=== PATIENT | female | born 1950 | race Caucasian/White ===

== ENCOUNTER → 2017-12-27 | Outpatient (CLI) | payer OTHER ==
[~2017-12-27] MED LIST: ALLOPURINOL 30300 M1 PO; ASPIRIN EC81 M1 PO; AUGMENTIN 875-1 EACH PO; CARVEDILOL25 MG PO; CLONIDINE0.1 PO; DILTIAZEM 24HR240 MG PO; DIPHENOXYLATE/A1 TA1 PO; DUONEB 2.5-0.5 M3 ML INH; EVISTA PO; FUROSEMIDE 20 M20 M1 PO; LIPITOR20 MG PO; NICOTINE TRANSD21 M1 TD; PACERONE 200 M200 M1; PERCOCET 5-3251 EACH PO; PLAVIX 75 MG TA75 M1; PRILOSEC 20 MG20 MG PO; PROZAC 20 MG20 MG PO; ZANAFLEX4 M1 PO
== END ==
LOC: CAT 13:14
DX: I72.3 Aneurysm of iliac artery (principal); I71.4 Abdominal aortic aneurysm, without rupture; N18.9 Chronic kidney disease, unspecified; M51.36 Other intervertebral disc degeneration, lumbar region

== ENCOUNTER → 2019-08-29 | Outpatient (CLI) | payer OTHER ==
[~2019-08-29] VITALS: Ht 167.6 cm; Wt 63.5 kg
[~2019-08-29] MED LIST changes: +CLARITIN10 MG PO; +COUMADIN 5 MG TA5 M1 PO; +GATTEX5 MG SUBQ; +HUMIRA PEN PSO1 EACH SUBQ; +PHENERGAN 25 MG25 M1 PO; +PROAIR HFA8.5 GM INH
[2019-08-29 09:00] LABS: CREATININE 1.9 mg/dL (0.6-1.0); POTASSIUM 4.7 mmol/L (3.5-5.1)
[2019-08-29 09:04] LABS: PROTIME 10.3 Seconds (9.3-11.4)
[2019-08-29 09:06] LABS: ALBUMIN 3.4 g/dL (3.4-5.0); TOTAL BILIRUBIN 0.3 mg/dL (<0.1-1.0); TOTAL PROTEIN 7.6 g/dL (6.4-8.2)
== END | disposition home or self-care (01) ==
LOC: CATH 07:51
PROVIDERS: Nuclear Medicine Nuclear Cardiology
DX: I65.23 Occlusion and stenosis of bilateral carotid arteries (principal); I70.1 Atherosclerosis of renal artery; K55.1 Chronic vascular disorders of intestine; N28.9 Disorder of kidney and ureter, unspecified; I72.0 Aneurysm of carotid artery; I11.0 Hypertensive heart disease with heart failure; I50.9 Heart failure, unspecified; E78.5 Hyperlipidemia, unspecified; I48.91 Unspecified atrial fibrillation; J44.9 Chronic obstructive pulmonary disease, unspecified; K21.9 Gastro-esophageal reflux disease without esophagitis; F17.210 Nicotine dependence, cigarettes, uncomplicated; Z98.890 Other specified postprocedural states; Z79.899 Other long term (current) drug therapy; Z90.5 Acquired absence of kidney; Z88.8 Allergy status to other drugs, medicaments and biological substances; Z90.49 Acquired absence of other specified parts of digestive tract; Z79.01 Long term (current) use of anticoagulants; Z90.710 Acquired absence of both cervix and uterus; Z98.0 Intestinal bypass and anastomosis status

== ENCOUNTER → 2019-10-29 | Outpatient (CLI) | payer OTHER | LOC: CAT 13:24 | DX: J43.9 Emphysema, unspecified (principal); R91.8 Other nonspecific abnormal finding of lung field; R91.1 Solitary pulmonary nodule; J98.4 Other disorders of lung ==

== ENCOUNTER → 2019-11-20 | Outpatient (CLI) | payer OTHER | LOC: SJCVCIMAG 10:04 | DX: I65.23 Occlusion and stenosis of bilateral carotid arteries (principal); I70.1 Atherosclerosis of renal artery; I25.10 Atherosclerotic heart disease of native coronary artery without angina pectoris; I71.4 Abdominal aortic aneurysm, without rupture; I48.91 Unspecified atrial fibrillation; J44.9 Chronic obstructive pulmonary disease, unspecified; E78.00 Pure hypercholesterolemia, unspecified; K55.1 Chronic vascular disorders of intestine; I10 Essential (primary) hypertension; F17.210 Nicotine dependence, cigarettes, uncomplicated; Z79.01 Long term (current) use of anticoagulants; Z79.899 Other long term (current) drug therapy; Z82.49 Family history of ischemic heart disease and other diseases of the circulatory system; Z98.890 Other specified postprocedural states ==

== ENCOUNTER → 2020-04-07 | Outpatient (CLI) | payer OTHER | LOC: SJCVCIMAG 07:51 | PROVIDERS: ATTEND Internal Medicine Cardiovascular Disease | DX: I65.23 Occlusion and stenosis of bilateral carotid arteries (principal); I71.4 Abdominal aortic aneurysm, without rupture; I77.4 Celiac artery compression syndrome; I70.1 Atherosclerosis of renal artery; I25.10 Atherosclerotic heart disease of native coronary artery without angina pectoris; J44.9 Chronic obstructive pulmonary disease, unspecified; I48.0 Paroxysmal atrial fibrillation; I10 Essential (primary) hypertension; E78.00 Pure hypercholesterolemia, unspecified; F17.210 Nicotine dependence, cigarettes, uncomplicated; K50.919 Crohn's disease, unspecified, with unspecified complications; Z82.49 Family history of ischemic heart disease and other diseases of the circulatory system; Z95.828 Presence of other vascular implants and grafts; Z79.899 Other long term (current) drug therapy ==

== ENCOUNTER 2020-04-17 14:34 | Observation (INO) | payer OTHER ==
[~2020-04-17] VITALS: Ht 167.6 cm; Wt 63.5 kg
[2020-04-17 08:42] VITALS: BP 122/55
[2020-04-17 08:50] LABS: HEMATOCRIT 40.7 % (37.0-47.0); HEMOGLOBIN 13.1 gm/dL (12.0-15.0); MCH 31.6 pg (26.0-34.0); MCHC 32.3 g/dL (28.0-37.0); MCV 97.8 fL (80.0-100.0); RBC 4.16 mil/uL (4.20-5.00); RDW 17.2 % (10.5-14.5); WBC 10.1 thou/uL (4.0-11.0)
[2020-04-17 08:56] LABS: CALCIUM 8.8 mg/dL (8.5-10.1); CREATININE 2.6 mg/dL (0.6-1.0); POTASSIUM 5.1 mmol/L (3.5-5.1)
[2020-04-17 09:14] LABS: PROTIME 9.7 Seconds (9.3-11.4)
--- NOTE | 2020-04-17 10:59 | EKG ---
[facility] [place] [address] ELECTROCARDIOGRAM REPORT Name: CRISTO JONES Room #: [facility]#: [id number] Admission: Attend Phys: Darshan Wilson MD Discharge: Date of : 48 Report #: [id number] THIS REPORT FOR: cc: TONE - No family physician/PCP FAM - No family physician/PCP Gurvinder Guevara MD ~ THIS REPORT FOR: //name// [facility] Test Date: 2020-04-17 Test Time: 10:19:09 Pat Name: CRISTO JONES Department: Room: Gender: F Manager Msw: [facility] : 1950 Requested By: Madison Shanks Order Number: [id number] MD: Gurvinder Guevara Measurements Intervals [place] Rate: 68 P: 53 MI: 176 QRS: -58 QRSD: 95 T: 67 QT: 418 QTc: 445 Interpretive Statements Sinus rhythm Left anterior fascicular block Abnormal R-wave progression, late transition Compared to ECG 12/25/2012 08:17:34 Left anterior fascicular block now present Sinus bradycardia no longer present T-wave abnormality no longer present Possible ischemia no longer present Electronically Signed On 04-17-2020 10:59:41 CDT by Gurvinder Guevara [email or web address] <ELECTRONICALLY SIGNED> By: Gurvinder Guevaar MD 04/17/20 1059 1019 1019 Gurvinder Guevara MD /EPI
[~2020-04-17 14:34] MED LIST changes: +BREO ELLIPTA 11 EACH INH; +CARVEDILOL12.5 MG PO; +COMBIVENT INH; +LORCET 5-325 M1 EACH PO
--- NOTE | 2020-04-17 14:42 | NUR ---
PT ARRIVED FROM [facility] AT APPROX 1345. PT TO HAVE PROCEDURE TODAY, BUT NOTED THAT KIDNEY LABS ABNORMAL, PT ADMITTED. PT ALERT AND ORIENTED. VSS. C/O CHRONIC BACK PAIN, WILL TREAT NEEDED. PT UP SBA, TOLERATING WELL. O2 SATS WNL ON ROOM AIR. PT TO HAVE PROCEDURES TOMORROW. ADMISSION COMLETE, TELE STRIP PRINTED. PT RESTING IN BED COMFORTABLY WITH NO NEEDS/CONCERNS. WILL CONTINUE TO MONITOR.
[2020-04-17 19:58] VITALS: BP 100/58
[2020-04-18] VITALS (12 sets, daily range): BP systolic 103–174; BP diastolic 42–75
--- NOTE | 2020-04-18 03:51 | NUR ---
ASSESSMENTS CHARTED, MEDS GIVEN CHARTED. PATIENT SLEEPING AT START OF SHIFT, GETTING MAINTENANCE FLUIDS DURING SHIFT. ALERT AND ORIENTED, AFIB/ SINUS RHYTHM ON TELEMETRY. ON ROOM AIR, LUNGS CLEAR. PATIENT HAS BEEN NPO SINCE MIDNIGHT FOR CARDIAC CATH PROCEDURE IN THE MORNING. UP AT THOR IN ROOM, C/O CHRONIC PAIN TYLENOL GIVEN. FALL PRECAUTIONS IN PLACE DURING SHIFT.
[2020-04-18 06:05] LABS: CALCIUM 8.6 mg/dL (8.5-10.1); POTASSIUM 4.6 mmol/L (3.5-5.1); TOTAL BILIRUBIN 0.3 mg/dL (0.2-1.0); TOTAL PROTEIN 6.3 g/dL (6.4-8.2)
[2020-04-18] MEDS ORDERED: PLAVIX 75 MG TA75 M1 PO (09:56)
--- NOTE | 2020-04-18 10:25 | NUR ---
ASSUMED CARE OF PT AT SHIFT CHANGE, A&0X4, NORMALLY AMB WITHOUT ANY ASSISTIVE DEVICE, NPO FOR PROCEDURE. LEFT FOR CARDIAC CATH A T 0739, RETURNED AROUND 1015 WITH INSTRUCTIONS, REITERATED THROUGHOUT A.M., TO KEEP RLE STRAIGHT AND NOT TO LIFT HER HEAD. NEEDED TO USE BEDPAN IMMEDIATELY. LOG ROLLED W/SUCCESS. WILL CONTINUE TO MONITOR. HOOKED UP IVF C/O BACK PAIN FROM LYING ON CART FOR PROCEDURE, WILL HELP HER MAKE SMALL POSITION CHANGES TO HELP ALLEVIATE BACK PAIN/STIFFNESS AND START FOOD IF ORDERED. SEE SEPARATE INTERVENTIONS FOR ASSESSMENTS
--- NOTE | 2020-04-18 10:56 | NUR ---
ZOFRAN ADMINISTRATION: ADM W/ORDER YET IMMEDIATELY SHE JUST RETURNED FROM [facility], NEEDED TO BE IMMOBILE WITH LOWER EXT AND HEAD MUSCLES TO PREVENT BLEEDING AND SHE WAS VERY NAUSEAS. REPORT OF HTN PRIOR TO ARRIVAL BACK TO 2N AND MORPHINE GIVEN ALONG WITH OTHER MEDS. REC ORDER FROM CARDIOLOGY BUT CANNOT SCAN YET UNTIL IT SHOWS UP ON EMAR. GIVEN AT 1047.
== END 2020-04-18 16:00 | disposition home or self-care (01) ==
LOC: CATH 14:34 → 2N 14:35 → CATH 14:51 → 2N 04-18 16:00
PROVIDERS: Nurse Practitioner Adult Health; ADMIT Nuclear Medicine Nuclear Cardiology; ATTEND Nuclear Medicine Nuclear Cardiology
DX: I70.213 Atherosclerosis of native arteries of extremities with intermittent claudication, bilateral legs (principal); E78.5 Hyperlipidemia, unspecified; I13.0 Hypertensive heart and chronic kidney disease with heart failure and stage 1 through stage 4 chronic kidney disease, or unspecified chronic kidney disease; E11.22 Type 2 diabetes mellitus with diabetic chronic kidney disease; N18.9 Chronic kidney disease, unspecified; I50.30 Unspecified diastolic (congestive) heart failure; D68.59 Other primary thrombophilia; J44.9 Chronic obstructive pulmonary disease, unspecified; Z71.6 Tobacco abuse counseling; Z72.0 Tobacco use

== ENCOUNTER 2020-05-30 07:31 | Inpatient (IN) | payer OTHER ==
[2020-05-26 13:29] LABS: HEMATOCRIT 39.2 % (37.0-47.0); HEMOGLOBIN 12.6 gm/dL (12.0-15.0); MCH 31.3 pg (26.0-34.0); MCHC 32.2 g/dL (28.0-37.0); MCV 97.1 fL (80.0-100.0); RBC 4.03 mil/uL (4.20-5.00); RDW 17.9 % (10.5-14.5); WBC 9.7 thou/uL (4.0-11.0)
[2020-05-26 13:31] LABS: URINE BILIRUBIN NEGATIVE (Negative); URINE BLOOD NEGATIVE (Negative); URINE CLARITY CLEAR; URINE COLOR YELLOW; URINE GLUCOSE-RANDOM* NEGATIVE (Negative); URINE KETONES TRACE (Negative); URINE LEUKOCYTES-REFLEX TRACE (Negative); URINE NITRITE-REFLEX NEGATIVE (Negative); URINE PROTEIN (DIPSTICK) 2+ (Negative); URINE SPECIFIC GRAVITY 1.025 (1.005-1.035); URINE UROBILINOGEN 0.2 E.U./dl (0.2-1.0)
[2020-05-26 13:43] LABS: ALBUMIN 3.4 g/dL (3.4-5.0); CALCIUM 8.6 mg/dL (8.5-10.1); CREATININE 2.2 mg/dL (0.6-1.0); POTASSIUM 5.1 mmol/L (3.5-5.1); TOTAL BILIRUBIN 0.3 mg/dL (0.2-1.0); TOTAL PROTEIN 7.2 g/dL (6.4-8.2)
[2020-05-26 13:52] LABS: SQUAMOUS 0-3 Few /LPF (0-3)
[2020-05-26 13:53] LABS: BACTERIA-REFLEX 1-9 Few /HPF (None Seen); CASTS None Seen /LPF (None Seen); CRYSTALS None Seen /LPF (None Seen); URINE RBC None Seen /HPF (0-2)
[2020-05-26 14:08] LABS: APTT 32.4 Seconds (24.5-32.8); INR 1.1; PROTIME 10.8 Seconds (9.3-11.4)
--- NOTE | 2020-05-27 16:04 | EKG ---
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: EDWARD : 1950 Requested By: Syed Dobbins Order Number: [id number] : Gurvinder Guevara Measurements Intervals [place] Rate: 62 P: 29 NE: 163 QRS: -53 QRSD: 112 T: 77 QT: 419 QTc: 426 Interpretive Statements Sinus rhythm Atrial premature complex Left anterior fascicular block Borderline T abnormalities, lateral leads Compared to ECG 04/17/2020 10:19:09 Atrial premature complex(es) now present T-wave abnormality now present Electronically Signed On 05-27-2020 16:04:35 CDT by Gurvinder Guevara [email or web address] <ELECTRONICALLY SIGNED> By: Gurvinder Guevara MD 05/27/20 1604 1323 1323 Gurvinder Guevara MD /EPI
[~2020-05-30] VITALS: Ht 167.6 cm; Wt 64.0 kg
[~2020-05-30 07:31] MED LIST changes: +LOMOTIL TABLET1 EACH PO; +MACROBID 100 M100 M2 PO; +OMEPRAZOLE 20 M20 M1 PO; +PLAVIX 75 MG TA75 M1 PO; +PROZAC20 M1 PO
[2020-06-05] MEDS ORDERED: PLAVIX 75 MG TA75 MG PO (14:59)
[2020-06-05] MEDS ORDERED: WARFARIN SODIUM5 MG PO (15:00)
[2020-06-09 13:23] LABS: URINE BILIRUBIN NEGATIVE (Negative); URINE BLOOD NEGATIVE (Negative); URINE CLARITY SL CLOUDY; URINE COLOR YELLOW; URINE GLUCOSE-RANDOM* NEGATIVE (Negative); URINE KETONES NEGATIVE (Negative); URINE NITRITE-REFLEX NEGATIVE (Negative); URINE PROTEIN (DIPSTICK) 2+ (Negative); URINE SPECIFIC GRAVITY 1.025 (1.005-1.035); URINE UROBILINOGEN 0.2 E.U./dl (0.2-1.0)
[2020-06-09 13:24] LABS: URINE LEUKOCYTES-REFLEX 1+ (Negative)
[2020-06-09 13:34] LABS: CASTS None Seen /LPF (None Seen); SQUAMOUS >10 Many /LPF (0-3); URINE RBC 0-2 Rare /HPF (0-2)
[2020-06-09 13:35] LABS: BACTERIA-REFLEX 1-9 Few /HPF (None Seen); CRYSTALS None Seen /LPF (None Seen)
[2020-06-13] VITALS (8 sets, daily range): BP systolic 92–127; BP diastolic 29–57
[2020-06-13 07:21] LABS: PROTIME 9.9 Seconds (9.3-11.4)
[2020-06-13 12:44] LABS: HEMATOCRIT 28.8 % (37.0-47.0); HEMOGLOBIN 9.5 gm/dL (12.0-15.0); MCH 32.2 pg (26.0-34.0); MCHC 33.1 g/dL (28.0-37.0); MCV 97.1 fL (80.0-100.0); RBC 2.96 mil/uL (4.20-5.00)
--- NOTE | 2020-06-13 13:46 | NUR ---
PATIENT ARRIVED TO ICU FROM PACU AT 1335, ALERT AND ORIENTED. HYPOTENSIVE AND ON LEVOPHED GTT FOR BP SUPPORT. A-LINE ON BOTH RIGHT AND LEFT RADIAL-LEFT NON FUNCTIONAL AND WILL DC ONCE PATIENT IS SETTLED IN. SCDs ON BLE. FAMILY MEMBER IN TO SEE PATIENT BRIEFLY AND UPDATED THEN LEFT. BELONGINGS WITH PATIENT.
--- NOTE | 2020-06-13 14:26 | O ---
[facility] [place] [address] OPERATIVE REPORT Name: CRISTO JONES Room #: 250-P ADM IN M.R.#: [id number] Admission: 06/13/20 Attend Phys: Syed Dobbins MD Discharge: Date of : 48 Report #: [id number] THIS REPORT FOR: cc: MARICARMEN DIETZ - Family physician unknown Syed Dobbins MD ~ CC: TONE unknown MARICARMEN Dobbins DATE OF SERVICE: 06/13/2020 PREOPERATIVE DIAGNOSIS: Right carotid artery stenosis. POSTOPERATIVE DIAGNOSIS: Right carotid artery stenosis. OPERATION: Right carotid endarterectomy with patch closure. SURGEON: Syed Dobbins MD ASSOCIATE PROFESSOR OF EDUCATION: ABELINO Carroll. ANESTHESIA: General. INDICATIONS: The patient is a 69-year-old seen for Dr. Wilson. The patient has a 90 plus percent complex right carotid bifurcation lesion extending into the internal carotid. The left side had trivial disease. FINDINGS AND TECHNIQUE: After general anesthesia was established, an oblique incision was made in the right neck. Common facial vein was divided. Common internal and external carotid arteries were identified and controlled, 10,000 units of heparin were given. Continuous electroencephalographic monitoring was performed during the operation when the carotid vessels were occluded, no EEG changes were noted. Carotid arteriotomy was made. The endarterectomy was performed without creating a distal flap. Neointima was inspected and all loose debris was removed. Tacking sutures were placed at the transition zone. When the endarterectomy was deemed to be satisfactory, the arteriotomy was closed with running Prolene and a thin walled pericardial patch. Prior to finishing the closure, the carotid vessels were backbled and the artery was flushed with heparinized saline. Flow was established first through the external, then the internal carotid artery. [facility] [address] [place] [address] OPERATIVE REPORT Name: CRISTO JONES Room #: 250-P ADM IN M.R.#: [id number] Admission: 06/13/20 Attend Phys: Syed Dobbins MD Discharge: Date of : 48 Report #: [id number] Protamine was given to reverse the heparin. When hemostasis was satisfactory, wound was irrigated with antibiotic solution and then a Laughlin drain was brought out through the bottom pole of the incision and the wound was closed in layers. The patient was taken to the recovery area in good condition where her neurologic progress was monitored. All counts were reported as correct. <ELECTRONICALLY SIGNED> By: Syed Dobbins MD 06/13/20 1426 1114 1137 Syed Dobbins MD /nt
--- NOTE | 2020-06-13 14:36 | NUR ---
ASSESSMENT: CM REVIEWED CHART AND ATTEMPTED TO CONTACT PATIENT BUT NO ANSWER. CM ATTEMPTED TO REACH OUT TO PATIENTS BUT VM WAS LEFT. PT WAS ADMITTED DUE TO RIGHT CARTOID ENDARTERECTOMY. PER RECORDS IT APPEARS PATIENT IS FROM HOME. PT/OT HAS BEEN ORDERED BUT EVALS ARE PENDING. CM WILL CONTINUE TO FOLLOW AND ATTEMPT TO REACH PT/ TO ASSIST WITH ANY NEEDS.
[2020-06-13 17:04] LABS: CALCIUM 7.3 mg/dL (8.5-10.1); CREATININE 1.8 mg/dL (0.6-1.0)
--- NOTE | 2020-06-13 21:17 | NUR ---
DISCUSSED PATIENT STATUS WHEN DR. WHITE ROUNDED APPROXIMATELY 2014. NOTIFIED THAT LEVO WAS DISCONTINUED BUT PHENYLEPHERINE WAS ON THE MAR, WHITE WANTS LEVO TO HELP KEEP HR UP, TO WEAN TOLERATED PER ORDER. MAY SHUT OFF FLUIDS AFTER BAG HAS INFUSED IF PATIENT IS EATING AND DRINKING. NOTIFIED THAT URINE OUTPUT WAS APPROX 25CC/HR, ACCEPTABLE FOR THIS PATIENT AT THIS TIME PER WHITE
[2020-06-14] VITALS (8 sets, daily range): BP systolic 91–120; BP diastolic 35–56
[2020-06-14 05:39] LABS: HEMATOCRIT 28.8 % (37.0-47.0); HEMOGLOBIN 9.4 gm/dL (12.0-15.0); MCH 31.9 pg (26.0-34.0); MCHC 32.6 g/dL (28.0-37.0); MCV 97.8 fL (80.0-100.0); RBC 2.94 mil/uL (4.20-5.00); RDW 17.3 % (10.5-14.5); WBC 13.3 thou/uL (4.0-11.0)
[2020-06-14 05:56] LABS: CALCIUM 7.8 mg/dL (8.5-10.1); POTASSIUM 5.5 mmol/L (3.5-5.1)
--- NOTE | 2020-06-14 12:26 | NUR ---
1215- UP TO CHAIR. DR. HILLMAN CHANGED NECK DRESSING NURSE DISCONTINUED GARCIA WITHOUT DIFFICULTY. EDUCATION PROVIDED IN REGARDS TO PATIENT NEED TO VOID PRIOR TO DISCHARGE. ARTERIAL LINE DISCONTINUED WITHOUT DIFFICULTY. EDUCATION PROVIDED IN REGARDS TO SITE CARE AND MONITORING. SHE EXPRESSED SHE UNDERSTOOD. NURSE TALKED WITH DR. HILLMAN IN REGARDS TO PATIENT PAIN REGIMEN, PRN MEDICATION OBTAINED. WILL PROVIDE FOR HER PAIN.
--- NOTE | 2020-06-14 14:18 | NUR ---
SPOKE WITH PT TODAY REGARDING OT EVAL. SHE HAD JUST RETURNED TO BED FROM CHAIR WITH RN. DOES NOT USE GAIT AID AT BASELINE AND DIDN'T DURING FUNCTIONAL TRANSFERS IN HOSPITAL. PT PLANNING TO DISCHARGE TODAY. PT LIVES WITH SPOUSE WHO IS AVAILABLE TO ASSIST PT NEEDED. HER BATHROOM AND BEDROOM ARE ON FIRST FLOOR. BATHROOM HAS GRAB BARS AND A SHOWER CHAIR. SHE OWNS A CANE, WALKER, AND WHEELCHAIR. OT SIGNING OFF. PLEASE LET OT DEPT KNOW IF PT NEEDS CHANGE.
--- NOTE | 2020-06-17 18:06 | PATH ---
[facility] [address] [place] [address] PATHOLOGY RPT PROCEDURE Name: JER JONESNITIN Alves Room #: 250-P DIS IN M.R.#: [id number] Admission: 06/13/20 Date of : 48 Discharge: 06/14/20 Report #: [id number] Path Case #: [id number] [facility] Accession Number: [id number] . 01 Material submitted: . carotid body - RIGHT CAROTID PLAQUE. Modifiers: right . 01 Clinical history: . RIGHT CAROTID STENOSIS . 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 - Fragments of calcific atherosclerotic plaque material. ([facility]; 06/17/2020) QMS 06/17/2020 1336 Local . 02 Electronically signed: . Krys Bland MD, Pathologist NPI- [id number] . 01 Gross description: . Received in formalin labeled "Cristo Jones, right carotid plaque" is a tubular portion of morales-white rubbery tissue measuring 4.8 cm in length and 1.4 cm in diameter. The specimen is sectioned to reveal extensive morales-white calcifications comprising approximately 80% of the specimen. Chemist Biological sections are submitted in cassette A1 following decalcification. ([facility]; 06/13/2020) [facility] 06/13/2020 [facility] Local . 02 Pathologist provided ICD-10: I77.1 . 02 CPT . 135013, 539497 Specimen Comment: A courtesy copy of this report has been sent to [phone] Specimen Comment: Report sent to Performed at: [address], [place] [id number] MD Ferny Lo MD Phone: [phone] Performed at: [address] [id number] MD Krys Bland MD Phone: [phone]
== END 2020-06-14 15:00 | disposition home or self-care (01) | DRG 39 ==
LOC: PRE 07:31 → TBA 06-13 06:03 → PRE 06-13 12:28 → ICU 06-13 13:45 → PRE 06-13 14:59 → ICU 06-14 15:00
PROVIDERS: Anesthesiology; Physician Assistant; ADMIT Surgery Vascular Surgery; ATTEND Surgery Vascular Surgery
DX: I65.21 Occlusion and stenosis of right carotid artery (principal)
CPT/HCPCS: 10078; 48888; 50010; 50101; 50386; 50417; 50455; 51301; 52279; 52287; 54118; 56524; 56526; 56528; 56534; 57254; 62110; 62900; 65020; 65040; 65130; 70005

== ENCOUNTER → 2020-06-09 | Outpatient (CLI) | payer OTHER ==
[~2020-06-09] MED LIST changes: +PLAVIX 75 MG TA75 MG PO; +WARFARIN SODIUM5 MG PO
== END ==
LOC: LAB 14:50
PROVIDERS: ATTEND Surgery Vascular Surgery
DX: Z01.812 Encounter for preprocedural laboratory examination (principal); Z20.828 Contact with and (suspected) exposure to other viral communicable diseases

== ENCOUNTER → 2020-07-16 | Outpatient (CLI) | payer OTHER | LOC: SJCVCIMAG 08:39 | PROVIDERS: ATTEND Internal Medicine Cardiovascular Disease | DX: I65.22 Occlusion and stenosis of left carotid artery (principal); I71.4 Abdominal aortic aneurysm, without rupture; N28.1 Cyst of kidney, acquired; I77.9 Disorder of arteries and arterioles, unspecified; I10 Essential (primary) hypertension; I70.1 Atherosclerosis of renal artery; I25.10 Atherosclerotic heart disease of native coronary artery without angina pectoris; I48.91 Unspecified atrial fibrillation; J44.9 Chronic obstructive pulmonary disease, unspecified; K55.1 Chronic vascular disorders of intestine; K50.919 Crohn's disease, unspecified, with unspecified complications; E78.00 Pure hypercholesterolemia, unspecified; F17.210 Nicotine dependence, cigarettes, uncomplicated; Z79.899 Other long term (current) drug therapy ==

== ENCOUNTER → 2020-11-03 | Outpatient (CLI) | payer OTHER | LOC: SJCVC 11:41 | PROVIDERS: ATTEND Internal Medicine Cardiovascular Disease | DX: R94.31 Abnormal electrocardiogram [ECG] [EKG] (principal); I11.9 Hypertensive heart disease without heart failure; I49.49 Other premature depolarization; I25.10 Atherosclerotic heart disease of native coronary artery without angina pectoris; I48.91 Unspecified atrial fibrillation; E78.00 Pure hypercholesterolemia, unspecified; I71.4 Abdominal aortic aneurysm, without rupture; K55.1 Chronic vascular disorders of intestine; E11.9 Type 2 diabetes mellitus without complications; I70.1 Atherosclerosis of renal artery; I77.9 Disorder of arteries and arterioles, unspecified; D68.59 Other primary thrombophilia; J44.9 Chronic obstructive pulmonary disease, unspecified; F17.210 Nicotine dependence, cigarettes, uncomplicated; Z98.890 Other specified postprocedural states; Z88.8 Allergy status to other drugs, medicaments and biological substances; Z79.4 Long term (current) use of insulin; Z79.01 Long term (current) use of anticoagulants; Z79.899 Other long term (current) drug therapy; Z82.49 Family history of ischemic heart disease and other diseases of the circulatory system ==

== ENCOUNTER → 2021-04-27 | Outpatient (CLI) | payer OTHER | LOC: SJCVCIMAG 08:58 | PROVIDERS: ATTEND Nuclear Medicine Nuclear Cardiology | DX: K55.1 Chronic vascular disorders of intestine (principal); I65.22 Occlusion and stenosis of left carotid artery; I71.4 Abdominal aortic aneurysm, without rupture; I77.9 Disorder of arteries and arterioles, unspecified; I25.10 Atherosclerotic heart disease of native coronary artery without angina pectoris; I70.1 Atherosclerosis of renal artery; I10 Essential (primary) hypertension; I48.91 Unspecified atrial fibrillation; E78.00 Pure hypercholesterolemia, unspecified; J44.9 Chronic obstructive pulmonary disease, unspecified; F17.210 Nicotine dependence, cigarettes, uncomplicated; Z98.890 Other specified postprocedural states; Z88.1 Allergy status to other antibiotic agents; Z88.5 Allergy status to narcotic agent; Z88.6 Allergy status to analgesic agent; Z79.899 Other long term (current) drug therapy; Z79.01 Long term (current) use of anticoagulants ==

== ENCOUNTER → 2021-08-24 | Outpatient (CLI) | payer OTHER | LOC: SJCVC 12:54 → SJCVCIMAG 12:54 | PROVIDERS: ATTEND Internal Medicine Cardiovascular Disease | DX: R94.31 Abnormal electrocardiogram [ECG] [EKG] (principal); I44.4 Left anterior fascicular block; I71.4 Abdominal aortic aneurysm, without rupture; K55.1 Chronic vascular disorders of intestine; I77.9 Disorder of arteries and arterioles, unspecified; I48.91 Unspecified atrial fibrillation; I10 Essential (primary) hypertension; E78.00 Pure hypercholesterolemia, unspecified; I25.10 Atherosclerotic heart disease of native coronary artery without angina pectoris; I70.1 Atherosclerosis of renal artery; J44.9 Chronic obstructive pulmonary disease, unspecified; I72.3 Aneurysm of iliac artery; F17.210 Nicotine dependence, cigarettes, uncomplicated; Z79.899 Other long term (current) drug therapy; Z88.8 Allergy status to other drugs, medicaments and biological substances; Z82.49 Family history of ischemic heart disease and other diseases of the circulatory system ==

== ENCOUNTER → 2021-08-27 | Outpatient (CLI) | payer OTHER ==
[~2021-08-27] MED LIST changes: -COMBIVENT INH; +COMBIVENT RESPIM4 GM; -DUONEB 2.5-0.5 M3 ML INH; -EVISTA PO; +EVISTA60 MG PO; +HYDROCODON-ACE1 EAC7 PO; +IPRAT-ALBUT 0.5-3 ML INH; +LIPITOR40 MG PO
[2021-08-27 13:35] LABS: CALCIUM 8.1 mg/dL (8.5-10.1); CREATININE 1.9 mg/dL (0.6-1.0); POTASSIUM 4.2 mmol/L (3.5-5.1)
== END | disposition home or self-care (01) ==
LOC: CAT 09:39
PROVIDERS: ATTEND Nuclear Medicine Nuclear Cardiology
DX: I71.4 Abdominal aortic aneurysm, without rupture (principal); I77.4 Celiac artery compression syndrome; M47.816 Spondylosis without myelopathy or radiculopathy, lumbar region

== ENCOUNTER 2021-09-08 08:21 | Observation (INO) | payer OTHER ==
[2021-08-27 13:35] LABS: CALCIUM 8.1 mg/dL (8.5-10.1); CREATININE 1.9 mg/dL (0.6-1.0); POTASSIUM 4.2 mmol/L (3.5-5.1)
--- NOTE | 2021-08-27 14:00 | NUR ---
PT IN FOR HYDRATION BEFORE CT SCAN WITH CONTRAST. 20G PLACED IN RT AC HER PORT IS PROB NOT A POWERPORT IT WAS PLACED IN 2006 AND SHE HAS NO DOCUMENTATION OF WHAT TYPE IT WAS. BMP DRAWN BEFORE BOLUS AND CT. COMMUNICATED WITH DR NORWOOD OFFICE TO CLARIFY THE HYDRATION ORDERS. NS BOLUS 200MLS BEFORE CT AND 150MLS AFTER. PT ARIANA ALL OF IT WELL AND HER VSS. 132/48 86 15 97.4 3+EDEMA IN HER ANKLES BILAT PRIOR TO IVF AND CT. TRANSPORTED TO [facility] OFFICE VIA WC WITH NO ISSUES
[~2021-09-08] VITALS: Ht 167.6 cm; Wt 57.0 kg
[~2021-09-08 08:21] MED LIST changes: +COMBIVENT INH; -COMBIVENT RESPIM4 GM; +DUONEB 2.5-0.5 M3 ML INH; +EVISTA PO; -EVISTA60 MG PO; -HYDROCODON-ACE1 EAC7 PO; -IPRAT-ALBUT 0.5-3 ML INH; -LIPITOR40 MG PO
[2021-09-08 09:57] LABS: HEMATOCRIT 36.2 % (37.0-47.0); HEMOGLOBIN 11.6 gm/dL (12.0-15.0); MCH 31.5 pg (26.0-34.0); MCV 98.4 fL (80.0-100.0); RBC 3.68 mil/uL (4.20-5.00); RDW 16.5 % (10.5-14.5); WBC 10.6 thou/uL (4.0-11.0)
[2021-09-08 10:06] LABS: CALCIUM 8.7 mg/dL (8.5-10.1); CREATININE 1.8 mg/dL (0.6-1.0); POTASSIUM 4.3 mmol/L (3.5-5.1)
[2021-09-08 16:04] LABS: URINE BILIRUBIN NEGATIVE (Negative); URINE BLOOD NEGATIVE (Negative); URINE CLARITY CLEAR; URINE COLOR YELLOW; URINE GLUCOSE-RANDOM* NEGATIVE (Negative); URINE KETONES NEGATIVE (Negative); URINE NITRITE-REFLEX NEGATIVE (Negative); URINE PROTEIN (DIPSTICK) TRACE (Negative); URINE UROBILINOGEN 0.2 E.U./dl (0.2-1.0)
[2021-09-08 16:06] LABS: URINE LEUKOCYTES-REFLEX 1+ (Negative)
[2021-09-08 16:18] LABS: CASTS None Seen /LPF (None Seen); CRYSTALS None Seen /LPF (None Seen); SQUAMOUS 4-10 Moderate /LPF (0-3); URINE RBC None Seen /HPF (NONE SEEN)
--- NOTE | 2021-09-08 19:09 | NUR ---
PATIENT'S VITAL SIGNS WERE MONITORED AND RECORDED. UA SAMPLE COMPLETED. ADMISSION COMPLETED. PATIENT COMPLETED THREE HOURS OF BEDREST AT 1830. TELE REMOVED AND PORT SITE DEACCESSED. LEFT GROIN SITE REMAINED CLEAN, DRY AND INTACT WITHOUT ANY DISCOMFORT WHEN SHE SAT ON THE SIDE OF THE BED AND THEN WALKED TO THE WHEELCHAIR.
== END 2021-09-08 19:02 | disposition home or self-care (01) ==
LOC: CATH → 2N 15:56
PROVIDERS: Surgery Vascular Surgery; ADMIT Nuclear Medicine Nuclear Cardiology; ATTEND Nuclear Medicine Nuclear Cardiology
DX: I71.4 Abdominal aortic aneurysm, without rupture (principal); I10 Essential (primary) hypertension; I70.1 Atherosclerosis of renal artery; I70.201 Unspecified atherosclerosis of native arteries of extremities, right leg; I25.10 Atherosclerotic heart disease of native coronary artery without angina pectoris; I48.91 Unspecified atrial fibrillation; E78.00 Pure hypercholesterolemia, unspecified; K55.1 Chronic vascular disorders of intestine; J44.9 Chronic obstructive pulmonary disease, unspecified; F17.210 Nicotine dependence, cigarettes, uncomplicated; Z79.899 Other long term (current) drug therapy; Z79.82 Long term (current) use of aspirin; Z98.890 Other specified postprocedural states

== ENCOUNTER → 2021-09-22 | Outpatient (CLI) | payer OTHER ==
[~2021-09-22] MED LIST changes: -COMBIVENT INH; +COMBIVENT RESPIM4 GM; -DUONEB 2.5-0.5 M3 ML INH; -EVISTA PO; +EVISTA60 MG PO; +HYDROCODON-ACE1 EAC7 PO; +IPRAT-ALBUT 0.5-3 ML INH; +LIPITOR40 MG PO
[2021-09-22 09:30] LABS: URINE BILIRUBIN NEGATIVE (Negative); URINE BLOOD NEGATIVE (Negative); URINE CLARITY CLEAR; URINE COLOR YELLOW; URINE GLUCOSE-RANDOM* NEGATIVE (Negative); URINE KETONES NEGATIVE (Negative); URINE LEUKOCYTES-REFLEX TRACE (Negative); URINE NITRITE-REFLEX NEGATIVE (Negative); URINE PROTEIN (DIPSTICK) 2+ (Negative); URINE SPECIFIC GRAVITY 1.025 (1.005-1.035); URINE UROBILINOGEN 0.2 E.U./dl (0.2-1.0)
[2021-09-22 09:31] LABS: ABSOLUTE NEUTROPHILS 5.5 thou/uL (1.4-8.2); EOSINOPHILS 6.3 % (0.0-3.0); HEMOGLOBIN 11.5 gm/dL (12.0-15.0); LYMPHOCYTES 25.1 % (24.0-44.0); MCH 32.1 pg (26.0-34.0); MCHC 32.9 g/dL (28.0-37.0); MCV 97.6 fL (80.0-100.0); PLATELET COUNT 221 thou/uL (150-400); POLYS 60.6 % (36.0-66.0); RBC 3.58 mil/uL (4.20-5.00); WBC 9.1 thou/uL (4.0-11.0)
[2021-09-22 09:47] LABS: SQUAMOUS >10 Many /LPF (0-3)
[2021-09-22 09:49] LABS: URINE RBC 1-2 Rare /HPF (NONE SEEN); URINE WBC-REFLEX 6-15 Few /HPF (0-5)
[2021-09-22 09:50] LABS: BACTERIA-REFLEX 1-9 Few /HPF (None Seen); CASTS None Seen /LPF (None Seen); CRYSTALS None Seen /LPF (None Seen)
[2021-09-22 09:51] LABS: APTT 34.8 Seconds (24.5-32.8); INR 1.33; PROTIME 14.3 Seconds (10.5-12.1)
[2021-09-22 09:53] LABS: ALBUMIN 2.6 g/dL (3.4-5.0); CALCIUM 8.8 mg/dL (8.5-10.1); CREATININE 1.6 mg/dL (0.6-1.0); POTASSIUM 4.9 mmol/L (3.5-5.1); TOTAL BILIRUBIN 0.3 mg/dL (0.2-1.0); TOTAL PROTEIN 6.2 g/dL (6.4-8.2)
== END ==
LOC: PAC 08:38
PROVIDERS: Student in an Organized Health Care Education/Training Program; ATTEND Surgery Vascular Surgery
DX: Z01.812 Encounter for preprocedural laboratory examination (principal); Z20.822 Contact with and (suspected) exposure to COVID-19

== ENCOUNTER → 2021-09-25 | Day surgery (SDC) | payer OTHER ==
[~2021-09-25] VITALS: Ht 165.1 cm; Wt 54.0 kg
[2021-09-25 10:23] LABS: APTT 29.2 Seconds (24.5-32.8); INR 1.02; PROTIME 11.1 Seconds (10.5-12.1)
[2021-09-25 11:25] VITALS: BP 151/77
== END | disposition home or self-care (01) ==
LOC: PRE → TBA 08:59 → OR 09:00 → EDSTATUS 11:56 → PRE 11:57 → EDSTATUS 15:29 → PRE 16:04
PROVIDERS: ATTEND Surgery Vascular Surgery
DX: I71.4 Abdominal aortic aneurysm, without rupture (principal); Z53.8 Procedure and treatment not carried out for other reasons; J43.9 Emphysema, unspecified; F17.210 Nicotine dependence, cigarettes, uncomplicated; I10 Essential (primary) hypertension; E78.5 Hyperlipidemia, unspecified; I48.91 Unspecified atrial fibrillation; Z20.822 Contact with and (suspected) exposure to COVID-19; Z98.890 Other specified postprocedural states; Z79.899 Other long term (current) drug therapy

== ENCOUNTER → 2021-11-04 | Outpatient (CLI) | payer OTHER ==
[2021-11-04 11:43] LABS: ABSOLUTE NEUTROPHILS 4.9 thou/uL (1.4-8.2); BASOPHILS 1.6 % (0.0-2.0); EOSINOPHILS 7.7 % (0.0-3.0); HEMATOCRIT 37.4 % (37.0-47.0); HEMOGLOBIN 12.1 gm/dL (12.0-15.0); LYMPHOCYTES 27.9 % (24.0-44.0); MCH 31.4 pg (26.0-34.0); MCHC 32.3 g/dL (28.0-37.0); MCV 97.3 fL (80.0-100.0); PLATELET COUNT 204 thou/uL (150-400); POLYS 54.8 % (36.0-66.0); RBC 3.85 mil/uL (4.20-5.00); RDW 15.9 % (10.5-14.5); WBC 8.9 thou/uL (4.0-11.0)
[2021-11-04 11:44] LABS: URINE BILIRUBIN NEGATIVE (Negative); URINE BLOOD NEGATIVE (Negative); URINE CLARITY CLEAR; URINE COLOR YELLOW; URINE GLUCOSE-RANDOM* NEGATIVE (Negative); URINE KETONES NEGATIVE (Negative); URINE NITRITE-REFLEX NEGATIVE (Negative); URINE PROTEIN (DIPSTICK) 1+ (Negative); URINE SPECIFIC GRAVITY 1.015 (1.005-1.035); URINE UROBILINOGEN 0.2 E.U./dl (0.2-1.0)
[2021-11-04 11:46] LABS: APTT 29.6 Seconds (24.5-32.8); INR 1.01
[2021-11-04 11:55] LABS: URINE LEUKOCYTES-REFLEX 1+ (Negative)
[2021-11-04 12:18] LABS: CREATININE 1.9 mg/dL (0.6-1.0); POTASSIUM 5.2 mmol/L (3.5-5.1); TOTAL BILIRUBIN 0.4 mg/dL (0.2-1.0); TOTAL PROTEIN 6.4 g/dL (6.4-8.2)
--- NOTE | 2021-11-04 13:22 | EKG ---
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 : 1950 Requested By: Syed Dobbins Order Number: [id number] MD: Chaz Torres Measurements Intervals [place] Rate: 61 P: 49 ND: 159 QRS: -59 QRSD: 99 T: 67 QT: 420 QTc: 423 Interpretive Statements Sinus rhythm Atrial premature complexes Left anterior fascicular block Abnormal R-wave progression, late transition Compared to ECG 05/26/2020 13:23:58 T-wave abnormality no longer present Electronically Signed On 11-04-2021 13:22:23 CUSTOMER CARE PROFESSIONAL by Chaz Torres [email or web address] <ELECTRONICALLY SIGNED> By: Chaz Torres MD, [facility] 11/04/21 1322 1128 1128 Chaz Torres MD, FAC /EPI
[2021-11-04 13:33] LABS: SQUAMOUS 4-10 Moderate /LPF (0-3)
[2021-11-04 13:35] LABS: BACTERIA-REFLEX 1-9 Few /HPF (None Seen); CASTS None Seen /LPF (None Seen); CRYSTALS None Seen /LPF (None Seen); URINE RBC None Seen /HPF (NONE SEEN); URINE WBC-REFLEX 0-5 Rare /HPF (0-5)
== END ==
LOC: LAB 09:43 → PAC 10:06
PROVIDERS: ATTEND Surgery Vascular Surgery
DX: Z01.812 Encounter for preprocedural laboratory examination (principal); I10 Essential (primary) hypertension; I49.9 Cardiac arrhythmia, unspecified; Z20.822 Contact with and (suspected) exposure to COVID-19

== ENCOUNTER 2021-11-05 06:08 | Inpatient (IN) | payer OTHER ==
[~2021-11-05] VITALS: Ht 165.1 cm; Wt 51.8 kg
[2021-11-05] VITALS (9 sets, daily range): BP systolic 120–135; BP diastolic 54–77
[2021-11-05 07:33] LABS: INR 1.05; PROTIME 11.4 Seconds (10.5-12.1)
[2021-11-05 17:48] LABS: ABSOLUTE NEUTROPHILS 7.1 thou/uL (1.4-8.2); BASOPHILS 0.6 % (0.0-2.0); EOSINOPHILS 0.1 % (0.0-3.0); HEMATOCRIT 33.5 % (37.0-47.0); HEMOGLOBIN 10.8 gm/dL (12.0-15.0); LYMPHOCYTES 12.5 % (24.0-44.0); MCH 31.2 pg (26.0-34.0); MCHC 32.3 g/dL (28.0-37.0); MCV 96.6 fL (80.0-100.0); MONOCYTES 1.5 % (1.0-8.0); PLATELET COUNT 175 thou/uL (150-400); POLYS 85.3 % (36.0-66.0); RBC 3.47 mil/uL (4.20-5.00); WBC 8.4 thou/uL (4.0-11.0)
[2021-11-05 17:56] LABS: CALCIUM 8.2 mg/dL (8.5-10.1); CREATININE 1.5 mg/dL (0.6-1.0); POTASSIUM 4.8 mmol/L (3.5-5.1)
--- NOTE | 2021-11-05 20:29 | O ---
[facility] [place] [address] [address] [address] OPERATIVE REPORT Name: CRISTO JONES Room #: 150-1 ADM IN M.R.#: [id number] Admission: 11/05/21 Attend Phys: Syed Dobbins MD Discharge: Date of : 48 Report #: [id number] THIS REPORT FOR: cc: FAM - Family physician unknown FAM - Family physician unknown Syed Dobbins MD ~ DATE OF SERVICE: 11/05/2021 PREOPERATIVE DIAGNOSIS: Abdominal aortic aneurysm. POSTOPERATIVE DIAGNOSIS: Abdominal aortic aneurysm. OPERATION: Stent graft implant for infrarenal abdominal aortic aneurysm with intraoperative arteriograms and angioplasty. SURGEONS: Dr. Syed Dobbins and Dr. Darshan Wilson. ANESTHESIA: General. INDICATIONS: The patient is a 71-year-old known to me from previous carotid endarterectomy. The patient has severe peripheral arterial occlusive disease and she also has an important infrarenal abdominal aortic aneurysm that measures at least 5 cm. The patient has some aortoiliac occlusive disease as well. FINDINGS AND TECHNIQUE: After general anesthesia was established, incisions were made in both groins to expose the common femoral arteries. Common, deep and superficial femoral arteries were identified and controlled. 10,000 units of heparin were given. On each side, the femoral artery was entered with an arterial needle followed by guidewire to place a 6-Citizen [place] catheter. Through this catheter, a long J-wire was placed and exchanged over a multipurpose catheter, so that a Gilberto wire could be placed. Over the Gilberto wire through the left side, a femoral cutdown was made. The 6-Citizen Of [place] sheath was removed and the 18-Citizen [place] sheath was placed on the right side, the same was done to place a 12-Citizen [place] sheath. Through the 18-Citizen [place] sheath, the 28.5 x 12 x 2 conformable Excluder device was placed through the contralateral side. The visceral catheter was placed and it was located into only the right renal artery and using this as our position, the main body was deployed. We were happy with the position just at the distal extent of the right renal artery. The contralateral gate was opened and it was cannulated. Good position within the contralateral gate was ascertained using a pigtail catheter and the [facility] [address] [place] [address] OPERATIVE REPORT Name: CRISTO JONES Room #: 150-1 ADM IN M.R.#: [id number] Admission: 11/05/21 Attend Phys: Syed Dobbins MD Discharge: Date of : 48 Report #: [id number] technique. The patient had long iliac arteries and we knew that an extension would be necessary on the right side, a 12 x 14 limb was placed through the 12-Citizen [place] sheath into the contralateral gate and deployed and then an arteriogram was taken. This still showed some distance between the end of the graft and the hypogastric takeoff on the right and therefore, a 12 x 7 extension cuff was placed. This was deployed just above the hypogastric takeoff. When this was in place, an angioplasty balloon was used as a compliant balloon to fully dilate the graft and also to dilate some aortoiliac stenosis on the right side. On the left side, the main body was deployed completely and then similarly a 12 x 12 limb was selected for this long iliac and then a sheath arteriogram was taken to localize the hypogastric takeoff and then the left 12 x 12 limb was deployed to land just above the hypogastric. When all of the pieces had been deployed, then the compliant balloon was placed first through the right side and then the left side to fully deploy and distend the grafts. When this was complete, we thought that additional angioplasty would be necessary using a 9-Citizen [place] balloon in both the right and left iliac arteries. Satisfied with the position of the graft, an arteriogram was taken. The marked pigtail catheter was placed through the right side and an arteriogram was done that showed no evidence of endoleak and good position of the grafts. With this information, the pigtail was removed. Dilators were replaced into the sheaths, dilators were removed, and then guidewires were removed. The femoral cutdowns were repaired with interrupted Prolene and flow was reestablished. It should be mentioned that good inflow was ascertained on both sides prior to closure. Protamine was given to reverse the heparin. When hemostasis was satisfactory, the groin incisions were closed in layers and the patient was taken to the recovery area in good condition. <ELECTRONICALLY SIGNED> By: Syed Dobbins MD 11/05/219 1451 1558 Syed Dobbins MD /nt
--- NOTE | 2021-11-05 22:50 | NUR ---
PT RECEIVED REPORT ON PT FROM PACU STAFF ROSITA AT 2114. PT ARRIVED TO ICU AT 2137 ACCOMPANIED BY PACU STAFF. PT SETTLED INTO ROOM. PT COMPLAINED OF BACK PAIN FROM "LAYINNG ON HER BACK ALL DAY." DR HILLMAN CALLED ICU AT 2208 AND 2214. HE REQUESTED THAT PT BE GIVEN BABY ASPIRIN IF SHE WAS NOT ALLERGIC. PER PT SHE IS ALLERGIC TO ALL NSAIDS. WILL CONTINUE TO MONITOR.
[2021-11-06] VITALS (70 sets, daily range): BP systolic 105–166; BP diastolic 39–113
[2021-11-06 04:09] LABS: HEMATOCRIT 29.3 % (37.0-47.0); HEMOGLOBIN 9.4 gm/dL (12.0-15.0); MCH 31.5 pg (26.0-34.0); MCHC 32.2 g/dL (28.0-37.0); MCV 97.9 fL (80.0-100.0); RBC 2.99 mil/uL (4.20-5.00); RDW 16.1 % (10.5-14.5); WBC 11.7 thou/uL (4.0-11.0)
[2021-11-06 04:32] LABS: CALCIUM 7.2 mg/dL (8.5-10.1); CREATININE 1.3 mg/dL (0.6-1.0); POTASSIUM 4.4 mmol/L (3.5-5.1)
--- NOTE | 2021-11-06 10:11 | O ---
[facility] [place] [address] OPERATIVE REPORT Name: CRISTO JONES Room #: 250-P ADM IN M.R.#: [id number] Admission: 11/05/21 Attend Phys: Syed Dobbins MD Discharge: Date of : 48 Report #: [id number] THIS REPORT FOR: cc: FAM - Family physician unknown FAM - Family physician unknown Syed Dobbins MD ~ cc: Darshan Wilson MD DATE OF SERVICE: 11/05/2021 PREOPERATIVE DIAGNOSIS: Acute arterial insufficiency, left lower extremity. POSTOPERATIVE DIAGNOSIS: Acute arterial insufficiency, left lower extremity. OPERATION: Exploration of left femoral artery, left femoral thrombectomy, left femoral endarterectomy with patch closure. SURGEON: Syed Dobbins MD COMPENSATION AGENT: ABELINO Swain. ANESTHESIA: General. INDICATIONS: The patient is a 71-year-old who earlier in the day had stent graft implant for infrarenal abdominal aortic aneurysm. The patient had a satisfactory initial convalescence, but it was clear in the recovery room that her left lower extremity had poor inflow. An arterial Doppler was ordered and then an arteriogram was taken. This showed that the left femoral artery was occluded just above the arteriotomy on the left side and there was no acute changes in the outflow below the femoral bifurcation that was obvious at least. With this information, exploration of the left femoral artery was recommended with the thought that thrombectomy or femoral artery repair would be necessary. FINDINGS AND TECHNIQUE: After general anesthesia was established, the left femoral incision was opened to expose the common, deep and superficial femoral artery. These vessels were controlled individually. 10,000 units of heparin were given. The previous transverse arteriotomy was opened and a femoral thrombectomy was performed. Florin catheter was passed proximally and it was clear that this was more of a problem related to femoral artery dissection rather than simply thrombosed. More of the femoral vessels was exposed and then longitudinal arteriotomy was made. There was a dissection of the extensive calcified plaque within the [facility] [address] [place] [address] OPERATIVE REPORT Name: KARENCRISTO Long Room #: 250-P [facility].#: [id number] Admission: 11/05/21 Attend Phys: Syed Dobbins MD Discharge: Date of : 48 Report #: [id number] femoral artery. I felt it was necessary to perform an endarterectomy to remove and repair of this. Distally, I found a reasonably nice transition zone in the proximal superficial femoral artery. The endarterectomy was extended into the orifice of the deep femoral artery and then we found a reasonable area for the proximal transition zone. Tacking sutures were placed at all of the transition zones and then when we were satisfied with the endarterectomy, the arteriotomy was closed using a thin walled pericardial patch and running Prolene. Flow was established after the arteries were flushed and the vessel was irrigated with heparinized saline. Doppler signal was good and all of the vessels and the distal extremity appeared to pink up nicely with good Doppler signals present. Protamine was given to reverse the heparin and then the wound was closed in layers. A Prevena dressing was applied and then patient was taken to the recovery area. All counts were reported as correct. <ELECTRONICALLY SIGNED> By: Syed Dobbins MD 11/06/21 1011 0722 0742 Syed Dobbins MD /nt
--- NOTE | 2021-11-06 16:23 | NUR ---
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 fib anticoagulated with Coumadin, chronic kidney disease, hyperlipidemia, history of left kidney resection, COPD, Crohn's disease. Colostomy, CT examination August 2021 shows abdominal aortic aneurysm measuring . Yesterday patient underwent an elective stent graft repair of abdominal aortic aneurysm. She is A & O x 4, pleasant, able to make her needs. She lives at home with her spouse, independent, no dme. She completes her own colostomy care. No hh or rehab in the past. Manage her own medication. Dc home when medical stable. Spouse Jorge will be able to drive her home at dc.
--- NOTE | 2021-11-06 21:55 | NUR ---
Nurse updated Dr. Dobbins on patients afib, with rates, and blood pressures SBP 150's-160's. Per Dr. Dobbins, these results are okay clinical parameters. Will continue to monitor.
[2021-11-07] VITALS (15 sets, daily range): BP systolic 131–184; BP diastolic 66–96
--- NOTE | 2021-11-07 04:08 | NUR ---
Patient progressing towards plan of care as evidenced by continued pulses dopplered in lower extremeties and warm lower extremeties. Vital signs remain within cleared parameters per Dr. Dobbins. She has expressed pain tonight, however expressed this is the same pain she has at home and is unable to stand for long periods because of the same pain in her back at home. She has been up out of the bed to the toilet multiple times. Plan of care is to continue to monitor patient assessments, vital signs, and increase activity. She has gotten minimal sleep tonight.
--- NOTE | 2021-11-07 14:23 | NUR ---
Transfered pt to CCU rm 213. Betzy CASILLAS received pt and I gave her report. Before the transfer I found a bottle of pt's home norco pills in her purse. I notified the charge nurse Keiko and we both counted the norco pills and sealed the bag and Keiko delivered the bag to pharmacy. There are 7 pills in the norco bottle and we educated pt not to bring narcotics into the hospital next time and she can get them back when she discharges home. I notified Betzy of the home norco is in pharmacy for holding. I called pt's Donn that pt transfered to CCU rm 213.
--- NOTE | 2021-11-07 16:31 | NUR ---
PT TRANSFERRED FROM ICU. PT AMBULATED TO BED FROM WHEELCHAIR X1 ASSIST SINCE PATIENT HAS WOUND VAC. DRESSING IN CDI. PT ON ROOM AIR, SOA UPON EXERTION, HX COPD. SR NOTED ON MONITOR. PT AMBULATED X1 ASSIST TO BRP. PT COMPLETES CARES FOR COLOSTOMY. ASSESSMENTS CHARTED. PT DENIES PAIN. DENIES OTHER CONCERNS AT THIS TIME. WILL CONTINUE TO MONITOR. FALL PRECAUTIONS IN PLACE AND CALL LIGHT WITHIN REACH.
[2021-11-08 04:38] VITALS: BP 111/69
[2021-11-08 05:54] LABS: INR 1.03; PROTIME 11.2 Seconds (10.5-12.1)
[2021-11-08 07:25] VITALS: BP 141/88; BP 171/88
--- NOTE | 2021-11-08 07:30 | NUR ---
ASSESSMENTS CHARTED, MEDS CHARTED GIVEN. PATIENT RESTING IN BED DURING SHIFT. PATIENTS RIGHT GROIN CLEAN AND SOFT. LEFT GROIN TO WOUND VAC, GOOD SEAL. AFIB/SR ON TELEMETRY. PAIN MEDS GIVEN NEEDED. PATIENT WAS AWAKE MOST OF THE NIGHT WATCHING TV. CONTINUATION OF CARE.
[2021-11-08 11:30] VITALS: BP 102/53
[2021-11-08 15:35] VITALS: BP 152/82
--- NOTE | 2021-11-08 16:45 | NUR ---
ASSUMED CARE OF PATIENT AT 0700. A&O, RA, AFIB ON TELE. R PORT DRAWS BLOOD AND IS SL. WOUND VAC REMAINS IN PLACE TO LEFT GROIN AND RIGHT GROIN DRESSING REMAINS CDI. C/O PAIN TO BACK. HYDROCODONE GIVEN THIS MORNING AND CAN BE GIVEN TID. PATIENT TAKING CARE OF HER OWN ILOSTOMY BAG. PATIENTS OSORIO LOCATED IN ICU AND BROUGHT TO ROOM. PATIENT WEAK TODAY, ONLY ABLE TO GET UP AND AMBULATE TO BSC. ONE TIME DOSE OF WARFARIN GIVEN PER ORDER. PATIENT PROGRESSING TOWARD POC.
[2021-11-08 20:10] VITALS: BP 148/79
--- NOTE | 2021-11-08 23:10 | NUR ---
NURSING NOTE: PT ALERT AND ORIENTED X4; MOVES ALL EXTREMITIES AND FOLLOWS COMMANDS. C/O BACK PAIN = 6/10. MEDICATION GIVEN ORDERED AND WAS EFFECTIVE PER PATIENT. CURRENTLY RESTING WITH EYES CLOSED. ALL VS AND ASSESSMENTS CHARTED. NO DISTRESS NOTED AT THIS TIME. WILL CONTINUE TO MONITOR.
[2021-11-09 04:12] VITALS: BP 133/55
[2021-11-09 04:46] LABS: ABSOLUTE NEUTROPHILS 6.1 thou/uL (1.4-8.2); BASOPHILS 0.5 % (0.0-2.0); HEMOGLOBIN 8.9 gm/dL (12.0-15.0); LYMPHOCYTES 19.9 % (24.0-44.0); MCH 31.5 pg (26.0-34.0); MCV 95.5 fL (80.0-100.0); MONOCYTES 10.7 % (1.0-8.0); PLATELET COUNT 100 thou/uL (150-400); POLYS 64.9 % (36.0-66.0); RBC 2.83 mil/uL (4.20-5.00); RDW 15.7 % (10.5-14.5); WBC 9.4 thou/uL (4.0-11.0)
[2021-11-09 04:55] LABS: INR 1.01
[2021-11-09 05:19] LABS: CALCIUM 7.9 mg/dL (8.5-10.1); CREATININE 1.3 mg/dL (0.6-1.0); MAGNESIUM 1.4 mg/dL (1.8-2.4); PHOSPHORUS 2.7 mg/dL (2.6-4.7); POTASSIUM 3.1 mmol/L (3.5-5.1); TOTAL BILIRUBIN 0.3 mg/dL (0.2-1.0); TOTAL PROTEIN 5.3 g/dL (6.4-8.2)
[2021-11-09 07:25] VITALS: BP 122/55
[2021-11-09 11:35] VITALS: BP 125/59
[2021-11-09 14:06] VITALS: BP 125/59
[2021-11-09 14:10] VITALS: BP 125/59
--- NOTE | 2021-11-09 14:12 | NUR ---
PT ADMITTED RELATED TO DS 11/05/21/AAA/W/ENDO VASCULARE AORTIC STENT. CM REVIEWED CHART AND SPOKE WITH CARE TEAM. CM MET WITH PT AT BEDSIDE THIS DAY. PT APPEARED TO BE A&O X4. CM ROLE INTRODUCED. PT INDICATED SHE LIVES IN A HOUSE WITH HER SPOUSE WITH NO STEPS TO ENTER AND NO STEPS INSIDE. 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 PT INDICATED THAT HER PCP IS DR. MARICARMEN DIETZ. PT INDICATED SHE HAD HH IN THE PAST BUT DIDN'T WANT THEM AGAIN SHE DIDN'T THINK THEY WERE HELPFUL. HOSPITALIST HAD INITIALLY ORDERED HH BUT NOW INDICATED THAT SHE DOESN'T THINK PT NEEDS IT. PT INDICATED THAT HE SPOUSE WILL PROVIDE TRNASPORT HOME THIS DAY. NO OTHER CM INTERVENTION INDICATED. CASE CLOSED.
--- NOTE | 2021-11-09 14:26 | NUR ---
ASSUMED CARE OF PATIENT AT 0700. PATIENT REMAINS A&OX4, ON RA, AFIB ON TELE AND UP WITH ONE TO THE BS. C/O BACK PAIN, PAIN MEDEICATION GIVEN ONCE THIS SHIFT. ILOSTOMY CHANGED BY PATIENT TODAY. MAGNESIUM AND POTASSIUM BOTH REPLACED TODAY. TELE AND PORT IV DC'D AND REMOVED. PATIENTS' HOME MEDICATION RECIEVED FROM PHARMACY AND GIVEN BACK TO PATIENT. HAND WRITTEN SCRIPT GIVEN TO PATIENT WITH DC INSTRUCTIONS.PATIENT TO DC HOME WITH SELF CARE. PATIENT PROGRESSED TOWARD POC.
--- NOTE | 2021-11-11 13:08 | PATH ---
[facility] [address] [place] [address] PATHOLOGY RPT PROCEDURE Name: JER JONESNITIN Alves Room #: 213-P DIS IN M.R.#: [id number] Admission: 11/05/21 Date of : 48 Discharge: 11/09/21 Report #: [id number] Path Case #: [id number] [facility] Accession Number: [id number] . 01 Material submitted: . artery - LET FEMORAL ENDARTERECTOMY. Modifiers: left . 01 Clinical history: . LEFT FEMORAL ARETERY THROMBUS . 02 Diagnosis: Left femoral endarterectomy: - Calcific atherosclerotic plaque and organized thrombus. - Negative for malignancy. . (MLK:mml; 11/09/2021) QLM 11/09/2021 1611 Local . 02 Electronically signed: . Real Flanagan MD, Pathologist NPI- [id number] . 01 Gross description: . The specimen is received in formalin, labeled "Cristo Jones, left femoral endarterectomy". Received are multiple irregular segments of yellow-morales, calcified material measuring 4.8 x 2.1 x 0.8 cm in aggregate dimensions. Manager Furniture sections are submitted in cassette A1, following decalcification. ([facility]; 11/06/2021) NRI/NRI 11/06/2021 2045 Local . 02 Pathologist provided ICD-10: I74.3 . 02 CPT . 987353, [id number] Specimen Comment: A courtesy copy of this report has been sent to [phone] Specimen Comment: Report sent to Specimen Comment: A duplicate report has been generated due to demographic updates. Performed at: 01 [facility] [address] [place] [address] [id number] MD Kosta Noel MD Phone: [phone] Performed at: [address] [place] [id number] [id number] [place], [place] [address] PATHOLOGY RPT PROCEDURE Name: CRISTO JONES Room #: 213-P DIS IN M.R.#: [id number] Admission: 11/05/21 Date of : 48 Discharge: 11/09/21 Report #: [id number] Path Case #: [id number] MD Momo Farias MD Phone: [phone]
== END 2021-11-09 16:04 | disposition home or self-care (01) | DRG 268 ==
LOC: 2N 06:08 → TBA 06:08 → PRE 12:07 → ICU 21:38 → 2N 11-07 14:15
PROVIDERS: Anesthesiology; Internal Medicine; ADMIT Surgery Vascular Surgery; ATTEND Surgery Vascular Surgery
PROC: B41G1ZZ Fluoroscopy of Left Lower Extremity Arteries using Low Osmolar Contrast (ICD-10-PCS; principal; 2021-11-05)
PROC: B4181ZZ Fluoroscopy of Bilateral Renal Arteries using Low Osmolar Contrast (ICD-10-PCS; principal; 2021-11-05)
PROC: 04CL0ZZ Extirpation of Matter from Left Femoral Artery, Open Approach (ICD-10-PCS; principal; 2021-11-05)
PROC: B41J1ZZ Fluoroscopy of Other Lower Arteries using Low Osmolar Contrast (ICD-10-PCS; principal; 2021-11-05)
PROC: 04V03DZ Restriction of Abdominal Aorta with Intraluminal Device, Percutaneous Approach (ICD-10-PCS; principal; 2021-11-05)
PROC: 04UL0KZ Supplement Left Femoral Artery with Nonautologous Tissue Substitute, Open Approach (ICD-10-PCS; principal; 2021-11-05)
PROC: 04703ZZ Dilation of Abdominal Aorta, Percutaneous Approach (ICD-10-PCS; principal; 2021-11-05)
DX: I77.1 Stricture of artery (principal); E43 Unspecified severe protein-calorie malnutrition; N17.9 Acute kidney failure, unspecified; K50.90 Crohn's disease, unspecified, without complications; N18.4 Chronic kidney disease, stage 4 (severe); I13.0 Hypertensive heart and chronic kidney disease with heart failure and stage 1 through stage 4 chronic kidney disease, or unspecified chronic kidney disease; E44.0 Moderate protein-calorie malnutrition; Z68.1 Body mass index [BMI] 19.9 or less, adult; I71.4 Abdominal aortic aneurysm, without rupture; I48.0 Paroxysmal atrial fibrillation; K21.9 Gastro-esophageal reflux disease without esophagitis; J44.9 Chronic obstructive pulmonary disease, unspecified; I50.9 Heart failure, unspecified; E78.5 Hyperlipidemia, unspecified; E78.00 Pure hypercholesterolemia, unspecified; I25.10 Atherosclerotic heart disease of native coronary artery without angina pectoris; I65.29 Occlusion and stenosis of unspecified carotid artery; I70.1 Atherosclerosis of renal artery; I73.9 Peripheral vascular disease, unspecified; E83.42 Hypomagnesemia; F41.9 Anxiety disorder, unspecified; E87.6 Hypokalemia; Z79.01 Long term (current) use of anticoagulants; Z88.1 Allergy status to other antibiotic agents; Z88.8 Allergy status to other drugs, medicaments and biological substances; Z90.49 Acquired absence of other specified parts of digestive tract; Z93.2 Ileostomy status; Z98.42 Cataract extraction status, left eye; Z98.41 Cataract extraction status, right eye; Z90.710 Acquired absence of both cervix and uterus; Z71.6 Tobacco abuse counseling; Z90.5 Acquired absence of kidney; Z93.3 Colostomy status
CPT/HCPCS: 10078; 10081; 47375; 48889; 50010; 50101; 50386; 50455; 50643; 50953; 51165; 52287; 54118; 56524; 56526; 56528; 56531; 56534; 56668; 56760; 57092; 57093; 58585; 58731; 62110; 62900; 65020; 65040; 65090; 70005